=== PATIENT | female | born 1975 | race Caucasian/White ===

== ENCOUNTER 2018-10-07 20:11 | Emergency (ER) | payer OTHER, SELFPAY ==
[2018-10-07 20:19] VITALS: BP 162/97; PULSE 84; RESP 18; TEMP 36.6; O2SAT 97; BMI 30.4
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
[2018-10-07] MEDS: HYDROCODONE/ACET 5/325 TABLET 1 TAB PO (21:35)
[2018-10-07] MEDS: KETOROLAC 60 MG/2 ML VIAL IM (21:36)
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
[2018-10-07 22:58] VITALS: BP 139/92; PULSE 88; O2SAT 96
== END 2018-10-07 22:59 | disposition home or self-care (01) ==
PROVIDERS: Emergency Provider Emergency Medicine
DX: S00.83XA Contusion of other part of head, initial encounter (principal); S06.0X0A Concussion without loss of consciousness, initial encounter; W21.89XA Striking against or struck by other sports equipment, initial encounter; Y93.53 Activity, golf
CPT/HCPCS: 70486; 96372; 99283; 99284; J1885

== ENCOUNTER 2020-10-28 08:38 | Emergency (ER) | payer OTHER, SELFPAY ==
--- NOTE | 2020-10-28 08:45 | ED.GENADULT ---
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 No known sick contacts. She has been fully immunized with the Moderna vaccine. Her 2nd shot was at the end of May. Related Data Previous Rx's Medication Instructions Recorded hydrocodone 5 mg-acetaminophen 325 1 tab PO Q6H PRN #7 tab 10/07/18 mg tablet Allergies Allergy/AdvReac Type Severity Reaction Status Date / Time No Known Drug Allergies Allergy Verified 10/07/18 22:12 Review of Systems Constitutional Constitutional: Denies fever(s) ENT Comments: Loss of taste Respiratory Respiratory: Reports chest congestion and Reports cough Gastrointestinal Gastrointestinal: Reports diarrhea and Reports nausea Musculoskeletal Musculoskeletal: Reports system reviewed and no additional complaints, except as documented Integumentary/Breasts Skin/Breast: Denies rash Neurologic Neurologic: Reports system reviewed and no additional complaints, except as documented Hematologic/Lymphatic On Anticoagulants: No Allergic/Immunologic Allergic/Immunologic: Reports system reviewed and no additional complaints, except as documented Patient History Medical History (Updated 10/28/20 @ 09:13 by Benito Mckinley DO) Healthy adult Surgical History No pertinent past surgical history Social History Smoking Status: Never smoker Smoking Status: Never smoker Exam Initial Vital Signs Initial Vital Signs: Vital Signs Temperature 98.6 F 10/28/20 08:49 Pulse Rate 90 10/28/20 08:49 Respiratory Rate 20 10/28/20 08:49 Blood Pressure 151/100 H 10/28/20 08:49 Pulse Oximetry 99 10/28/20 08:49 HENMT Head: normal to inspection and normocephalic Eyes General: appearance normal, both eyes and all related structures Resp Auscultation: clear to auscultation bilaterally Cardio Rate: regular rate Skin Lesions: no lesions Neuro General: patient alert, patient awake, patient oriented x3 and moves all extremities Extrem General: normal to inspection and capillary refill normal Psych Appearance: grossly normal and well kempt Course Orders Ordered: ED Orders 10/28/20 08:46 COVID19 -Nasal swab/Pre-Proc Stat Vital Signs Vital signs: Vital Signs - 8 hr 10/28/20 08:49 Temperature 98.6 F Pulse Rate 90 Respiratory Rate 20 Blood Pressure 151/100 H Pulse Oximetry 99 Medical Decision Making Lab Data Labs: Lab Results 10/28/20 Range/Units 08:47 SARS-CoV-2 (PCR) Negative (Negative) MDM Narrative Medical decision making narrative: Patient is not in any respiratory distress. She is afebrile. She is fully immunized. Her COVID test was negative today however her given presenting symptoms are somewhat concerning for COVID. I did inform her this. We did discuss that the most conservative thing to do would be to quarantine herself for the next 14 days or have repeat testing in several days from now. Will have her follow-up with her medical department for this. She expressed understanding and agreement. Discharge Plan Departure Patient Disposition: Home Clinical Impression: Encounter for laboratory testing for COVID-19 virus Instructions: DI for COVID-19 (Suspected or Confirmed ) Activity Restrictions/Additional Instructions: Your COVID-19 test today was negative however like we discussed the most conservative thing would be this for you to quarantine for the next 14 days. I do recommend you talk with your medical department about this. They can decide whether not you should be retested in 7-10 days from now. Return to the emergency department for any new or worsening symptoms Prescriptions: No Action hydrocodone-acetaminophen 5-325 mg tablet 1 tab PO Q6H PRN (Reason: pain) Qty: 7 RF: 0
[2020-10-28 08:49] VITALS: BP 151/100; PULSE 90; RESP 20; TEMP 37; O2SAT 99
[2020-10-28 09:08] LABS: COVID19 -Nasal RAPID Negative (Negative)
[2020-10-28 09:32] VITALS: BP 147/92; PULSE 67; RESP 18; O2SAT 98
== END 2020-10-28 09:32 | disposition home or self-care (01) ==
PROVIDERS: Emergency Provider Emergency Medicine
DX: R05 Cough (principal); R43.9 Unspecified disturbances of smell and taste; R51.9 Headache, unspecified; R19.7 Diarrhea, unspecified; Z20.822 Contact with and (suspected) exposure to COVID-19
CPT/HCPCS: 87635; 99281; 99282; C9803

== ENCOUNTER → 2021-05-21 17:26 | Outpatient (CLI) | payer OTHER, SELFPAY ==
--- NOTE | 2021-05-21 | DI.MRI.S_ITS ---
PROCEDURE: MR WRIST LT WO CON INDICATIONS: left wrist injury,pain TECHNIQUE: Noncontrast coronal proton density fast spin echo and T2 fast spin echo with fat saturation; coronal 3-D gradient echo, axial T1 spin echo and T2 fast spin echo with fat saturation, sagittal T1 spin echo through the wrist. COMPARISON: None. FINDINGS: Image quality: Excellent. Bones and cartilage: The carpal bones are normally aligned. No bone marrow contusions or fractures. No evidence for avascular necrosis. Overlying cartilage surfaces appear normal. Carpal ligaments: The scapholunate and lunotriquetral ligaments appear intact. In the absence of intra-articular contrast, the extrinsic carpal ligaments are not well identified. Triangular fibrocartilage complex: T2 hyperintense signal in the peripheral aspect of the TFCC (9-7), compatible with tear. The extensor carpi ulnaris tendon is normal in location and morphology. Tendons and soft tissues: The carpal tunnel structures appear normal, including the median nerve. The ulnar nerve appears normal within Guyon's canal. All six extensor tendon compartments demonstrate normal morphology, without pathologic tendon sheath fluid. A 1 x 0.95 x 0.5 cm T2 hyperintense/T1 hypointense lesion is seen along the palmar aspect of the scaphoid radial articulation, which contains septations and may reflect a ganglion. IMPRESSION: 1. Peripheral tear in the TFCC. 2. Cystic lesion along the palmar aspect of the scaphoid radial articulation, which may reflect a ganglion. At Dictated by: Dominic Zheng M.D. on 05/22/2021 at 9:00 Approved by: Dominic Zheng M.D. on 05/22/2021 at 9:04
== END ==
DX: S63.592A Other specified sprain of left wrist, initial encounter (principal); M25.832 Other specified joint disorders, left wrist; M25.532 Pain in left wrist; X58.XXXA Exposure to other specified factors, initial encounter
CPT/HCPCS: 73221